=== PATIENT | male | born 1940 | race Caucasian/White ===

== ENCOUNTER → 2016-11-19 | Outpatient (CLI) | payer MEDICARE, OTHER ==
[~2016-11-19] MED LIST: ASPIRIN325 MG PO; BIPAP; CYMBALTA60 MG PO; FLOMAX0.4 MG PO; FLONASE 50 MCG/16 GM NOSE; GLUCOTROL10 MG PO; HYDRODIURIL25 MG PO; JANUVIA50 MG PO; LEVEMIR FL100 UNIT/1 SUB-Q; LIPITOR40 MG PO; MOBIC15 MG PO; NORCO 5-325 TA1 EACH PO; NORVASC5 MG PO; VITAMIN D-32000 UNI1 PO; ZANTAC 7575 MG PO; ZESTRIL2.5 MG PO; ZYLOPRIM300 MG PO; ZYRTEC10 MG PO
== END ==
LOC: GKIC 11:00
DX: H47.399 Other disorders of optic disc, unspecified eye (principal); R23.1 Pallor; I65.29 Occlusion and stenosis of unspecified carotid artery; M51.36 Other intervertebral disc degeneration, lumbar region; M48.02 Spinal stenosis, cervical region

== ENCOUNTER → 2016-11-19 | Outpatient (CLI) | payer MEDICARE, OTHER | END | disposition disaster alternative care site (69) | LOC: GRAD 07:26 | DX: M54.40 Lumbago with sciatica, unspecified side (principal); M48.06 Spinal stenosis, lumbar region; M47.896 Other spondylosis, lumbar region ==

== ENCOUNTER 2016-11-22 16:00 | Inpatient (IN) | payer MEDICARE, OTHER ==
[~2016-11-22] VITALS: Ht 172.7 cm; Wt 103.0 kg
--- NOTE | ~2016-11-22 | OR ---
PATIENT'S NAME: BIANCA DUPONT [facility] AGE: 75 Y [address] ROOM: [place] [address] [facility] ADMIT DATE: 11/25/2016 OR/Procedure Report DISCHARGE DATE: FAMILY PHYSICIAN: DARIO OLIVA MD ATTENDING PHYSICIAN: RAMO DAVENPORT SURGEON: Ramo Davenport MD [employer] SUPER[employer]OR: DATE OF PROCEDURE: 11/25/2016 PREOPERATIVE DIAGNOSIS: High-grade right internal carotid artery stenosis. POSTOPERATIVE DIAGNOSIS: High-grade right internal carotid artery stenosis. PROCEDURE: Right carotid endarterectomy with bovine pericardial patch. BUSINESS SUPPORT: LIZETT Vargas. ANESTHESIA: General. ESTIMATED BLOOD LOSS: 100 mL. OPERATIVE FINDINGS: Neurologically intact at the end of the case and two heavily calcified ulcerated plaque. DESCRIPTION OF PROCEDURE: The patient was brought to the operating room and placed supine on the operating room table, prepped and draped in a sterile manner. Preoperative time-out was performed. The patient received preoperative antibiotics. We made a standard incision along the anterior border of the sternocleidomastoid muscle. We transected the platysma, dissected out the internal jugular, dissected of the facial vein which was ligated and transected. We then dissected out the common, external, internal and superior thyroid. We placed a large clip on the superior thyroid. We gave 5000 units of heparin. We made an arteriotomy after clamping on major vessels from the common to the internal. We then removed the plaque in its entirety. We did a standard bovine pericardial patch using two running 6-0 Dahinda sutures. We removed the clamps and there was excellent flow into all 3 vessels, which was confirmed with use of Doppler. The clip was removed from the superior thyroid. We had performed a back pressure to ensure that the patient had adequate backflow. Heparin was reversed using protamine. Thrombin was used locally in the wound, deep layers with 2-0 and 3-0 Vicryl. Skin was closed with running 4-0 Monocryl. The patient tolerated the procedure well and transferred to recovery room and up to the floor. PATIENT'S NAME: BIANCA DUPONT [facility] AGE: 75 Y [address] ROOM: [place] [address] LOCATION: [facility] ADMIT DATE: 11/25/2016 OR/Procedure Report DISCHARGE DATE: FAMILY PHYSICIAN: DARIO OLIVA MD ATTENDING PHYSICIAN: RAMO DAVENPORT RAMO DAVENPORT MD FKM/modl /[id number] d: 11/25/162016 t: 11/28/16 1629, OPERATIVE SUMMARY
[~2016-11-22 16:00] MED LIST changes: -LEVEMIR FL100 UNIT/1 SUB-Q; -NORCO 5-325 TA1 EACH PO; -NORVASC5 MG PO
[2016-11-22] MEDS ORDERED: NORCO 5-325 TA1 EACH PO (16:07)
[2016-11-25 06:21] LABS: BASOPHIL % 0.4 %; EOSINOPHIL # 0.4 K/uL (0.0-0.5); EOSINOPHIL % 4.3 %; HEMATOCRIT 37.4 % (37.0-53.0); HEMOGLOBIN 12.5 g/dL (11.0-16.0); IMMATURE GRANULOCYTE % 0.4 %; LYMPHOCYTE # 2.1 K/uL (0.8-4.0); LYMPHOCYTE % 23.6 %; MCHC 33.4 gm/dL (32.0-36.5); MCV 98.7 fl (83.0-98.0); MONOCYTE # 1.1 K/uL (0.0-1.0); MONOCYTE % 12.5 %; MPV 10.6 fl (9.4-12.4); NEUTROPHIL # (ANC) 5.3 K/uL (1.4-9.0); NEUTROPHIL % 58.8 %; NRBC % 0 /100WBC (0-0.00); PLATELET COUNT 180 K/uL (150-450); RBC 3.79 M/uL (3.50-5.50); RDW-CV 14.3 % (11.9-14.6)
[2016-11-25 06:44] LABS: ALBUMIN 3.5 gm/dL (3.5-5.0); CALCIUM 8.8 mg/dL (8.5-10.5); CREATININE 1.6 mg/dL (0.6-1.3); TOTAL BILIRUBIN 0.5 mg/dL (0.0-1.5); TOTAL PROTEIN 6.9 g/dL (6.0-8.4)
[2016-11-25 06:46] LABS: ANION GAP 11.9 (10.0-19.0); POTASSIUM 4.9 mMol/L (3.7-5.1)
[2016-11-25 12:51] LABS: ANION GAP 12.8 (10.0-19.0); CALCIUM 8.2 mg/dL (8.5-10.5); CREATININE 1.5 mg/dL (0.6-1.3); POTASSIUM 4.8 mMol/L (3.7-5.1)
--- NOTE | 2016-11-25 19:37 | NUR ---
Significant Event: VSS, AFEBRILE, TITRATED TO 1L O2. HOME BIPAP FOR HS. VDX2, BM. IVF AT 75 ML/HR X12 HOURS TO L)FA. R)FA SL. ART LINE TO L)FA. RIGHT NECK DRESSING CDI. NORCO TWO TABS GIVEN AT SHIFT CHANGE.
--- NOTE | 2016-11-26 04:12 | NUR ---
Pt a/o x4. VSS on RA/CPAP, afebrile. started on norvasc last noc for some BP issues but have now resolved. Art line removed at 2230 d/t positional and not working correctly. Voids per urinal. Has not got oob this shift. R CEA site with small spot that has not changed this shift. R CEA with no other changes throughout the shift. Denies neuro changes. Chronic neck/back pain. Last norco was at hs. IV in [facility]'s SL. Plan: possible d/c today depending on Renal function
[2016-11-26 04:52] LABS: BASOPHIL % 0.2 %; EOSINOPHIL # 0.3 K/uL (0.0-0.5); EOSINOPHIL % 2.9 %; HEMATOCRIT 37.1 % (37.0-53.0); HEMOGLOBIN 12.3 g/dL (11.0-16.0); IMMATURE GRANULOCYTE % 0.4 %; LYMPHOCYTE # 1.5 K/uL (0.8-4.0); LYMPHOCYTE % 14.6 %; MCH 32.7 pg (27.0-34.0); MCHC 33.2 gm/dL (32.0-36.5); MCV 98.7 fl (83.0-98.0); MONOCYTE # 1.3 K/uL (0.0-1.0); MONOCYTE % 12.6 %; MPV 10.5 fl (9.4-12.4); NEUTROPHIL # (ANC) 7.3 K/uL (1.4-9.0); NEUTROPHIL % 69.3 %; NRBC % 0 /100WBC (0-0.00); PLATELET COUNT 170 K/uL (150-450); RBC 3.76 M/uL (3.50-5.50); RDW-CV 14.5 % (11.9-14.6); WBC 10.5 K/uL (4.0-11.0)
--- NOTE | 2016-11-26 12:46 | NUR ---
Introduced self and role of care management to pt and . They are from [place] and hoping to get out of her soon. He is up able to care for himself. HE does use a walker due to back pain and has a couple at home. sets up his meds for him and denies any post discharge needs.
[2016-11-26] MEDS ORDERED: NORVASC5 MG PO (15:27)
[2016-11-26] MEDS ORDERED: LEVEMIR FL100 UNIT/1 SUB-Q (16:31)
--- NOTE | 2016-11-26 16:40 | NUR ---
PT. A/OX3, VSS ON ROOM AIR. PT. GETS SBA IN ROOM, WALKED IN HALLS WITH THERAPY WITH WALKER. NORCO GIVEN @ 0845 FOR COMPLAINTS OF PAIN. RIGHT NECK INCISION IS OPEN TO AIR, CLOSED, NO DRAINAGE/SWELLING NOTICED TO SITE. IV'S REMOVED FROM R)AC & L)FA WITHOUT COMPLICATIONS. HERE. DISMISSAL INSTRUCTIONS, NEW MEDS, CEA INSTRUCTIONS GONE OVER WITH AND PATIENT, NO FURTHER QUESTIONS AT THIS TIME. ALL BELONGINGS SENT HOME WITH PATIENT.
== END 2016-11-26 16:43 | disposition disaster alternative care site (69) | DRG 983 ==
LOC: G3N 11-25 05:12 → GPCU 11-25 05:12
PROVIDERS: ADMIT Surgery Vascular Surgery
PROC: 02C Heart and Great Vessels, Extirpation (ICD-10-PCS; principal; 2016-11-25)
DX: I65.21 Occlusion and stenosis of right carotid artery (principal); E11.22 Type 2 diabetes mellitus with diabetic chronic kidney disease; Z87.891 Personal history of nicotine dependence; K21.9 Gastro-esophageal reflux disease without esophagitis; G47.33 Obstructive sleep apnea (adult) (pediatric); M54.2 Cervicalgia; E78.5 Hyperlipidemia, unspecified; I12.9 Hypertensive chronic kidney disease with stage 1 through stage 4 chronic kidney disease, or unspecified chronic kidney disease; N18.9 Chronic kidney disease, unspecified; Z79.84 Long term (current) use of oral hypoglycemic drugs; N40.0 Benign prostatic hyperplasia without lower urinary tract symptoms
CPT/HCPCS: J0690; J1644; J2001; J2405; J2720; J7030; J7050